=== PATIENT | male | born 1940 | race Caucasian/White ===

== ENCOUNTER → 2023-11-28 12:23 | Outpatient (REF) | payer OTHER, SELFPAY | LOC: HWRAD 12:23 | PROVIDERS: ATTENDING PHYSICIAN Dentist Oral and Maxillofacial Surgery; FAMILY PHYSICIAN Internal Medicine | DX: D37.030 Neoplasm of uncertain behavior of the parotid salivary glands (principal) | CPT/HCPCS: 70492; Q9967 ==

== ENCOUNTER 2023-12-13 19:32 | Emergency (ER) | payer OTHER, SELFPAY ==
[2023-12-13 19:34] VITALS: BP 159/70
[2023-12-13] MEDS: TYLENOL 650 MG PO (21:00)
--- NOTE | 2023-12-13 21:55 | ED.GENMED ---
History of Present Illness
General
Chief Complaint: Skin Surface Trauma
Source: patient
Exam Limitations: none
Time Seen by Provider: 12/13/23 20:21
Nursing documentation reviewed up to this point in time: agreed with
Travel History
Have you had any contact with someone who has COVID-19?: No
Do you have any symptoms of coronavirus? Fever > 100 degrees, chills, cough, shortness of breath, sore throat, loss of taste or smell, muscle aches, or headache?: No
History of Present Illness
History of Present Illness:
83 Y/O M
no thinners
healthy
here with Right sided head/facial injury when he was participating in [employer]
he was dribbling a basketball and another ball was bouncing toward him and he got off balance and fell onto the ground hitting his face on the ground
he was wearing glasses
hernandez a small laceration right laterl orbital region and a mild headache
no nausea, vomiting, confusion, weakness, neck pain, dizziness, numbness/tingling, cp, sob
tetanus utd
Past History
Past History
ED Past Medical History: HTN and Hypercholesterolemia
ED Past Surgical History: Cardiac (CABG 2003)
Social History
Tobacco: Non-smoker
Alcohol: None
Drug: None
Personal:
Living: with family
Review of Systems
Review of Systems
Allergies reviewed?: Yes
All Other Systems: Not applicable
Phy Exam
Physical Exam
Physical Exam:
GENERAL: Alert , in no apparent distress
HEAD: some dried blood right scalp, no lacerations in scalp no hematoma
right superior lateral orbit with slight STS and a small superficia 0.5 cm lceration
NECK: no midline tenderness, active ROM intact, no paraspinal muscle tenderness;
EYE: pupils equal and reactive, EOMs intact.
ENT: o/p clr, mmm. no hemotympanum
nasal bone slightly swollen
CARDIAC: Regular rate and rhythm, no edema
LUNGS: Clear breath sounds bilaterally, no acute respiratory distress, no wheezes/rales/rhonchi
ABDOMEN: Soft, without focal tenderness, no r/g, no cvat
NEUROLOGICAL: Alert and oriented, no focal neuro deficits, CN intact, 5/5 strength, sensation intact
SKIN: Warm and dry,
MUSCULOSKELETAL: No edema, well perfused.
PSYCH: Normal and appropriate interaction.
Course
Orders/Labs/Results
Orders:
Orders
12/13/23 20:53
CT Head W/o Iv Contrast Urgent
Comment:
Reason For Exam: head injury/fall
12/13/23 20:55
CT Facial Bones W/o Iv Contras Urgent
Comment:
Reason For Exam: head injury/ fall
12/13/23 20:57
Acetaminophen [Tylenol] 650 mg .ROUTE .STK-MED ONE
12/13/23 21:00
Acetaminophen [Tylenol] 650 mg PO NOW STA
Vital Signs
Initial and Last Documented VS:
Initial Vital Signs
Temp Pulse Resp BP Pulse Ox
98.4 F 76 18 159/70 97
12/13/23 19:34 12/13/23 19:34 12/13/23 19:34 12/13/23 19:34 12/13/23 19:34
Last Documented Vital Signs
Temp Pulse Resp BP Pulse Ox
98.4 F 60 18 132/53 96
12/13/23 19:34 12/13/23 22:03 12/13/23 22:03 12/13/23 22:03 12/13/23 22:03
MDM/Problems Addressed
Differential Diagnosis Includes:
head injury, scalp laceration, contusion, fracture, concussion
MDM/Problems Addressed:
83 y/oi M
very active, healthy, no thinnenrs
fall while playing basketball, got himself off balance
struck his face/head on the ground
small lac where glasses were on right confucianism
no head laceration (dried blood there was removed, no scalp lac)
neuro intact
based on aage and risks, imaging ordered
ct head/face neg
sterristrip wound
tetanus UTD
head injury precautions
*Critical Care Note
Total Time (30-74mins, 75-104mins- exclusive of procedures): Not Applicable
ED Attending Note
-
Portions of this chart may have been created with voice recognition software.� Occasional wrong word or��sound alike� substitutions may have occurred due to the inherent limitations of voice recognition software.
Discharge Plan
Departure
Patient Disposition: Home (Routine Discharge)
Date of Disposition: 12/13/23
Time of Disposition: 22:00
Patient with high blood pressure during this ER visit?: No
Condition: Fair
Discharge Problem:
Contusion of face, Laceration of face, Fall
Instructions: Wound Care (DC), Minor Contusion ED
Prescriptions:
No Action
diazepam 2 MG tablet
2 mg PO TIDPRN PRN (Reason: neck pain/stiffness) Qty: 6 0RF
Referrals:
Aníbal Baird MD [Family Provider] - Follow up in 2-3 days
Activity Restrictions/Additional Instructions:
your CAT scans of your face and your head showed no signs of fracture or trauma. You likely have a contusion to the side of your face. You can keep the Steri-Strip dry for 2 days and then you can get it wet as usual and it will peel up and fall
off. Take Tylenol as needed for pain. Ice off-and-on. Return for vomiting, confusion, weakness, severe headache, or any concerns
Interventions
Interventions:
*Risk Screen - Suicide Last Done: 12/13/23 19:34
*General Assessment Last Done: 12/13/23 19:34
*Neglect/Abuse Screening Last Done: 12/13/23 19:34
*ED COVID-19 Vaccine History Last Done: 12/13/23 19:39
*Nursing Disposition Last Done: 12/13/23 22:10
ED-Skin Assessment Last Done: 12/13/23 20:35
Discharge Date and Time
Discharge Date/Time: 12/13/23 22:12
Print Language: FAROESE
[2023-12-13 22:03] VITALS: BP 132/53
== END 2023-12-13 22:12 | disposition home or self-care (01) ==
LOC: EMR 19:32
PROVIDERS: EMERGENCY PHYSICIAN Emergency Medicine; FAMILY PHYSICIAN Internal Medicine
DX: S00.83XA Contusion of other part of head, initial encounter (principal); W19.XXXA Unspecified fall, initial encounter; Y93.67 Activity, basketball
CPT/HCPCS: 99284; 70450; 70486

== ENCOUNTER 2025-03-22 11:32 | Emergency (ER) | payer OTHER, SELFPAY ==
[2025-03-22 11:34] VITALS: BP 156/74
[2025-03-22 12:02] VITALS: BMI 21.3
[2025-03-22 12:05] VITALS: BP 132/65
--- NOTE | 2025-03-22 12:30 | EDRN ---
Megha DYSON w/ pt at this time.
--- NOTE | 2025-03-22 12:49 | ED.GENMED ---
History of Present Illness
General
Chief Complaint: Musculo-Skeletal Complaint
Source: patient
Exam Limitations: none
Time Seen by Provider: 03/22/25 12:15
Nursing documentation reviewed up to this point in time: agreed with
History of Present Illness
History of Present Illness:
84-year-old male past medical history of hypertension hyperlipidemia, CAD presenting to the emergency department with right sided shoulder discomfort specifically after throwing a Frisbee 2 days ago pain is very specifically reproducible with of the
shoulder. Denies any chest pain shortness of breath nausea vomiting numbness weakness or diaphoresis.
Past History
Past History
ED Past Medical History: HTN and Hypercholesterolemia
ED Past Surgical History: Cardiac (CABG 2003)
Social History
Tobacco: Non-smoker
Alcohol: None
Drug: None
Personal:
Living: with family
Review of Systems
Review of Systems
Allergies reviewed?: Yes
All Other Systems: ROS reviewed and negative except as documented in HPI and ROS
Phy Exam
Physical Exam
Physical Exam:
GENERAL: Alert , in no apparent distress
EYE: pupils equal and reactive
NECK: Supple, no significant adenopathy.
ENT: o/p clr, mmm.
CARDIAC: Regular rate and rhythm .
LUNGS: Clear breath sounds bilaterally, no acute respiratory distress, no wheezes/rales/rhonchi
ABDOMEN: Soft, without focal tenderness, no r/g, no cvat
NEUROLOGICAL: Alert and oriented, no focal neuro deficits
SKIN: Warm and dry, skin intact.
MUSCULOSKELETAL: Mild discomfort when palpating the right hand increased discomfort with abduction of the right shoulder movement overhead as well as moving the hand behind the back. No edema, well perfused.
PSYCH: Normal and appropriate interaction.
Course
Orders/Labs/Results
Orders:
Orders
03/22/25 11:37
Shoulder, Right 2 Views [CR Shoulder - Right Min 2 View] Urgent
Comment:
Reason For Exam: injury
Vital Signs
Initial and Last Documented VS:
Initial Vital Signs
Temp Pulse Resp BP Pulse Ox
98.3 F 80 16 156/74 98
03/22/25 11:34 03/22/25 11:34 03/22/25 11:34 03/22/25 11:34 03/22/25 11:34
Last Documented Vital Signs
Temp Pulse Resp BP Pulse Ox
98.3 F 63 16 132/65 98
03/22/25 11:34 03/22/25 12:05 03/22/25 12:05 03/22/25 12:05 03/22/25 12:50
MDM/Problems Addressed
MDM/Problems Addressed:
84-year-old male presenting to the emergency department with concerns of discomfort to his right shoulder. This was specifically after throwing a Frisbee 2 days ago pain specifically with movement. No additional associated symptoms. Symptoms
consistent with mechanical pain x-ray normal. No evidence that this is a referred. Advised for close outpatient follow-up. Return precautions given.
*Pulse Oximetry
SaO2: 98
Oxygen Mode of Delivery: Room air
Patient hypoxic: no (98)
*Critical Care Note
Total Time (30-74mins, 75-104mins- exclusive of procedures): Not Applicable
ED Attending Note
-
Portions of this chart may have been created with voice recognition software.� Occasional wrong word or��sound alike� substitutions may have occurred due to the inherent limitations of voice recognition software.
Discharge Plan
Departure
Patient Disposition: Home (Routine Discharge)
Date of Disposition: 03/22/25
Time of Disposition: 12:50
Patient with high blood pressure during this ER visit?: No
Condition: Good
Covid-19: Not Applicable
Discharge Problem:
Shoulder sprain
Instructions: Sprain (DC)
Prescriptions:
No Action
diazepam 2 MG tablet
2 mg PO TIDPRN PRN (Reason: neck pain/stiffness) Qty: 6 0RF
Referrals:
Derek Vargas MD [Active, Orthopedics] - Follow up in 5-7 days
Activity Restrictions/Additional Instructions:
You came to the emergency department today with concerns of a shoulder injury. Please rest ice and engage in light activity to help the shoulder heal and follow-up closely with orthopedics if symptoms are persisting over the next week. Return for
any worsening, new or concerning symptoms.
Interventions
Interventions:
*Risk Screen - Suicide Last Done: 03/22/25 11:34
*General Assessment Last Done: 03/22/25 12:02
*Neglect/Abuse Screening Last Done: 03/22/25 11:34
*ED- Fall Risk Assessment Last Done: 03/22/25 12:02
*ED COVID-19 Vaccine History Last Done: 03/22/25 12:02
ED-Musculoskeletal Assessment Last Done: 03/22/25 12:07
Discharge Date and Time
Print Language: STATELESS
== END 2025-03-22 13:10 | disposition home or self-care (01) ==
LOC: EMR 11:32
PROVIDERS: EMERGENCY PHYSICIAN Emergency Medicine; FAMILY PHYSICIAN Internal Medicine
DX: S43.401A Unspecified sprain of right shoulder joint, initial encounter (principal); X50.1XXA Overexertion from prolonged static or awkward postures, initial encounter; I10 Essential (primary) hypertension; I25.10 Atherosclerotic heart disease of native coronary artery without angina pectoris; E78.00 Pure hypercholesterolemia, unspecified
CPT/HCPCS: 99283; 73030